=== PATIENT | male | born 1990 | race Caucasian/White ===

== ENCOUNTER 2017-05-27 09:40 | Emergency (ER) | payer BC ==
[2017-05-27 10:47] VITALS: BP 119/91
--- NOTE | 2017-05-27 11:35 | UC ---
FLU HPI - HPI Summary HPI Summary: THREE DAYS OF CONGESTION, CHILLS, SORE THROAT, SWEATING. MOTHER HAD PNEUMONIA. NO COUGHING, NO SOB. NO FEVER. NAUSEA AND VOMITING THREE DAYS AGO - History of Current Complaint Chief Complaint: UCGeneralIllness Stated Complaint: FEVER,COLD,COUGH Time Seen by Provider: 05/27/17 09:59 Hx Obtained From: Patient Onset/Duration: Gradual Onset, Lasting Days, Still Present Severity Currently: Mild Severity Initially: Moderate Pain Intensity: 4 Pain Scale Used: 0-10 Numeric Associated Signs & Symptoms: Positive: F/C, Sore Throat, Nasal Congestion. Negative: Fever, T Max Related Hx: Possible Flu/Infectious Exposure - Risk Factors Influenza Risk Factors: Negative - Allergy/Home Medications Allergies/Adverse Reactions: Allergies Allergy/AdvReac Type Severity Reaction Status Date / Time Amoxicillin Allergy Rash Verified 05/27/17 09:46 Penicillins Allergy Rash Verified 05/27/17 09:46 Home Medications: Home Medications guaiFENesin ER TAB [Mucinex*] 05/27/17 [History] PMH/Surg Hx/FS Hx/Imm Hx Previously Healthy: Yes - Surgical History Surgical History: None - Family History Known Family History: Negative: Respiratory Disease - Social History Occupation: Employed Full-time Lives: With Family Alcohol Use: Occasionally Substance Use Type: None Smoking Status (MU): Heavy Every Day Tobacco Smoker Amount Used/How Often: 1/2 ppd Cessation Counseling: Patient Advised to Stop Review of Systems Constitutional: Chills, Fatigue Skin: Negative Eyes: Negative ENT: Sore Throat Respiratory: Negative Cardiovascular: Negative Gastrointestinal: Vomiting, Nausea Genitourinary: Negative Motor: Negative Neurovascular: Negative Musculoskeletal: Negative Neurological: Negative Psychological: Negative All Other Systems Reviewed And Are Negative: Yes Physical Exam Triage Information Reviewed: Yes Vital Signs: Initial Vital Signs Temp 97.1 F 05/27/17 09:46 Pulse 111 05/27/17 09:46 Resp 18 05/27/17 09:46 BP 157/105 05/27/17 09:46 Pulse Ox 99 05/27/17 09:46 ENT Exam: Normal ENT: Positive: Hearing grossly normal, Pharyngeal erythema - MILD, TMs normal Dental Exam: Normal Neck exam: Normal Neck: Positive: Supple, Nontender, No Lymphadenopathy Respiratory Exam: Normal Respiratory: Positive: Chest non-tender, Lungs clear, Normal breath sounds, No respiratory distress, No accessory muscle use Cardiovascular: Positive: Pulses Normal, Brisk Capillary Refill, Tachycardia Abdominal Exam: Normal Abdomen Description: Positive: Nontender, No Organomegaly, Soft Musculoskeletal Exam: Normal Musculoskeletal: Positive: Strength Intact, ROM Intact Neurological Exam: Normal Psychological Exam: Normal Skin Exam: Normal Diagnostics - Laboratory Diagnostic Studies Completed/Ordered: INFLUENZA A& B NEGATIVE; STREP NEGATIVE Flu Course/Dx - Course Course Of Treatment: STREP & FLU A& B NEGATIVE. PATINET ADVISED TO SEEK PROMPT EVALUATION AT ED DUE TO TACHYCARDIA, ELEVATED BP AND DIAPHORESIS. PATIENT REFUSED AMBULANCE - Differential Dx/Diagnosis Differential Diagnosis/HQI/PQRI: Influenza, Upper Respiratory Infection Provider Diagnoses: VIRAL SYNDROME, ELEVATED BLOOD PRESSURE, TACHYCARDIA Discharge - Discharge Plan Condition: Stable Disposition: HOME Patient Education Materials: Acute Nausea and Vomiting (ED), Viral Syndrome (ED ), Hypertension (ED), Tachycardia (ED) Referrals: Ginette Waldron MD [Primary Care Provider] - Additional Instructions: YOUR FLU AND STREP TESTS WERE NEGATIVE. PLEASE SEEK EVALUATION AT THE EMERGENCY DEPARTMENT FOR YOUR ELEVATED HEART RATE, COLD SYMPTOMS AND ELEVATED BLOOD PRESSURE.
== END 2017-05-27 10:43 | disposition home or self-care (01) ==
LOC: UCEAST 09:40
DX: B34.9 Viral infection, unspecified (principal); R03.0 Elevated blood-pressure reading, without diagnosis of hypertension; R00.0 Tachycardia, unspecified; Z88.0 Allergy status to penicillin; F17.210 Nicotine dependence, cigarettes, uncomplicated
CPT/HCPCS: 87502; 87651; 99202; G0463

== ENCOUNTER 2017-05-27 11:03 | Emergency (ER) | payer BC ==
[2017-05-27 11:34] VITALS: BP 136/87
[2017-05-27] MEDS ORDERED: Ibuprofen TAB* 600 MG PO ONE (12:24)
--- NOTE | 2017-05-27 12:34 | ED ---
Throat Pain/Nasal Congestion - HPI Summary HPI Summary: 26 male presents with complaints of nasal congestion, sore throat, chills, and body aches that have been going on for the past 3 days. Patient has not taken any medication other than 1 mucinex yesterday. Denies diarrhea or abdominal pain. Denies chest pain, SOB and difficulty breathing. Patient admits to nausea/ vomiting on day 1 however has not since. No blood. Denies coughing. Exposed to sick contact, grandmother with pneumonia. States he has been feeling feverish by getting the chills and sweating at night. Unable to sleep due to sweating, body aches and congestion. No other PMHx. No other complaints at this time. Sent from due to slight tachycardia and elevated BP. Patient stated "they told me to come here because they didn't know what was wrong". Had a negative strep and flu test while at . - History of Current Complaint Chief Complaint: EDUpperRespComplaint Time Seen by Provider: 05/27/17 11:08 Hx Obtained From: Patient Onset/Duration: Sudden Onset, Lasting Days, Still Present Severity: Mild Associated Signs And Symptoms: Positive: Dysphagia, Sinus Discomfort, Nasal Discharge Cough: None - Epiglottits Risk Factors Epiglottis Risk Factors: Negative - Allergies/Home Medications Allergies/Adverse Reactions: Allergies Allergy/AdvReac Type Severity Reaction Status Date / Time Amoxicillin Allergy Rash Verified 05/27/17 09:46 Penicillins Allergy Rash Verified 05/27/17 09:46 PMH/Surg Hx/FS Hx/Imm Hx Endocrine/Hematology History: Denies: Hx Diabetes Cardiovascular History: Denies: Hx Hypertension Respiratory History: Denies: Hx Asthma - Surgical History Surgery Procedure, Year, and Place: n/a - Immunization History Immunizations Up to Date: Yes Infectious Disease History: No Infectious Disease History: Denies: Hx of Known/Suspected MRSA, Traveled Outside the [place] in Last 30 Days - Family History Known Family History: Positive: None - Social History Alcohol Use: Occasionally Substance Use Type: Reports: None Smoking Status (MU): Current Every Day Smoker Amount Used/How Often: 1/2 ppd Review of Systems Positive: Chills, Fatigue Eyes: Negative Positive: Sore Throat, Nasal Discharge Cardiovascular: Negative Respiratory: Negative Positive: Vomiting - resolved, Nausea - resolved Musculoskeletal: Negative Skin: Negative Positive: Headache - frontal All Other Systems Reviewed And Are Negative: Yes Physical Exam Triage Information Reviewed: Yes Vital Signs On Initial Exam: Initial Vitals Temp Pulse Resp BP Pulse Ox 96.5 F 105 20 144/88 98 05/27/17 11:06 05/27/17 11:06 05/27/17 11:06 05/27/17 11:06 05/27/17 11:06 slight tachycardia noted, patient is ill. afebrile not hypoxic Vital Signs Reviewed: Yes Appearance: Positive: Well-Appearing, No Pain Distress, Well-Nourished Skin: Positive: Warm, Skin Color Reflects Adequate Perfusion, Dry. Negative: Cold, Numb, Cyanosis @, Pale, Erythema @ Head/Face: Positive: Normal Head/Face Inspection Eyes: Positive: EOMI, HARJINDER, Conjunctiva Clear ENT: Positive: Hearing grossly normal, Pharyngeal erythema - post nasal drip noted, Nasal congestion, TMs normal, Tonsillar swelling, Other - sounds congested when speaking. Negative: TM bulging, TM dull, Tonsillar exudate, Trismus, Muffled/hoarse voice Dental: Positive: Percussion Tenderness @ - maxillary b/l. Negative: Cervical Lymphadenopathy Neck: Positive: Supple, Nontender, No Lymphadenopathy Respiratory/Lung Sounds: Positive: Clear to Auscultation, Breath Sounds Present. Negative: Decreased Breath Sounds, Rales, Rhonchi, Stridor, Wheezes Cardiovascular: Positive: Normal, RRR, Pulses are Symmetrical in both Upper and Lower Extremities, Tachycardia - slight tachycardia on auscultation and palpation of pulses. Negative: Murmur, Rub Abdomen Description: Positive: Nontender, No Organomegaly, Soft Bowel Sounds: Positive: Present Musculoskeletal: Positive: Normal, Strength/ROM Intact Neurological: Positive: Normal, Sensory/Motor Intact, Alert, Oriented to Person Place, Time, Normal Gait Diagnostics - Vital Signs Vital Signs Temp Pulse Resp BP Pulse Ox 05/27/17 11:30 98.4 F 101 16 136/87 98 05/27/17 11:06 96.5 F 105 20 144/88 98 - Laboratory Lab Statement: Any lab studies that have been ordered have been reviewed, and results considered in the medical decision making process. - Radiology chest Xray Interpretation: No Acute Changes - No radiographic evidence for pneumonia or other acute intrathoracic process. Negative exam. Re-Evaluation - Re-Evaluation First Eval Re-Evaluation Time: 13:20 Change: Improved - vitals normal, slight tachycardi 101-105, patient is ill. no concern for other emergent etiology. EENT Course/Dx - Course Course Of Treatment: chest x-ray obtained due to patient positive contact with pneumonia and it was negative. vitals stable and no abnormal PE findings. negative strep and flu culture at [facility]. vitals stable, slight tachycardia not of concern 101-105bpm, however is sick. Appears to be suffering from an acute sinusitis/ URI. will give augmentin. conitnue ibuprofen for body aches and fever /chills. fluids, rest. mucinex, antihistamine, chloraseptic spray and flonase. aware of worsening signs and symptoms, return if occur. follow up pcp. - Differential Diagnoses Differential Diagnoses: Laryngitis, Otitis Media, Pharyngitis, Sinusitis, Tonsilitis, URI/Bronchitis, Other - pneumonia - Diagnoses Provider Diagnoses: Acute maxillary sinusitis Discharge - Discharge Plan Condition: Stable Disposition: HOME Prescriptions: Azithromycin TAB* [Zithromax TAB (Z-RICHIE) 250 mg #6 tabs] 2 tab PO .TODAY, THEN 1 DAILY #1 richie Fluticasone NASAL SPRAY 50MCG* [Flonase NASAL SPRAY 50MCG*] 2 spray BOTH NARES DAILY #1 btl Patient Education Materials: Sinusitis (ED) Referrals: No Primary Care Phys,NOPCP [Primary Care Provider] - [facility] [Outside] Additional Instructions: Take prescribed antibiotic as directed. Drink plenty of fluids and get plenty of rest. Hot showers. Drink tea with honey. Continue ibuprofen for body aches and fever/chills. Use prescribed nasal spray for nasal congestion. Recommend using saline nasal spray and gargling with salt water multiple times daily. Chloraseptic spray for sore throat. Continue mucinex to help with mucus production. Follow up primary care provider. If symptoms worsen or do not improve, as discussed please seek medical attention promptly.
--- NOTE | 2017-05-27 13:10 | RAD ---
INDICATION: Diaphoretic. Congestion. Assess for pneumonia. COMPARISON: No relevant prior exams available on the [facility] [place]. TECHNIQUE: Dual energy PA and routine lateral views of the chest were obtained. REPORT: Clear lungs and pleural spaces. Negative for pneumothorax. The heart, pulmonary vasculature, and mediastinal contours are unremarkable. Unremarkable osseous structures and soft tissue contours. IMPRESSION: No radiographic evidence for pneumonia or other acute intrathoracic process. Negative exam.
== END 2017-05-27 13:43 | disposition home or self-care (01) ==
LOC: ED 11:03
DX: J32.0 Chronic maxillary sinusitis (principal); F17.210 Nicotine dependence, cigarettes, uncomplicated; Z88.0 Allergy status to penicillin
CPT/HCPCS: 71020; 99282; A9270-GY